=== PATIENT | male | born 1950 | race Hispanic/Latino ===

== ENCOUNTER → 2018-07-02 | Outpatient (CLI) | payer OTHER | END | disposition home or self-care (01) | LOC: OIH 14:52 | PROVIDERS: ATTEND Family Medicine | DX: J44.9 Chronic obstructive pulmonary disease, unspecified (principal); M47.815 Spondylosis without myelopathy or radiculopathy, thoracolumbar region; I70.0 Atherosclerosis of aorta; Q25.46 Tortuous aortic arch; F17.210 Nicotine dependence, cigarettes, uncomplicated | CPT/HCPCS: 71046 ==